=== PATIENT | female | born 1980 | race Caucasian/White ===

== ENCOUNTER 2021-08-22 14:24 | Outpatient (CLI) | payer OTHER, SELFPAY ==
--- NOTE | ~2021-08-22 | MM_ITS ---
EXAMINATION: MM screening janina BI w jen HISTORY: Screening TECHNIQUE: Craniocaudal and mediolateral oblique 3-D tomosynthesis images were obtained and synthetic 2-D images were generated. CAD analysis was submitted and interpreted. COMPARISON: 09/12/2015 BREAST PARENCHYMAL COMPOSITION: The breasts are heterogeneously dense, which may obscure small masses . FINDINGS: There is no evidence of suspicious mass, calcification, or architectural distortion to sugg est malignancy in either breast. There has been no suspicious interval change. IMPRESSION: 1. No mammographic evidence of malignancy. 2. Recommend routine screening mammography in one year. BI-RADS Category 1: Negative Reviewed, dictated and finalized at location A.
== END 2021-08-22 14:25 | disposition home or self-care (01) ==
LOC: ANHIMG 14:26
PROVIDERS: Visit Provider Obstetrics & Gynecology
DX: Z12.31 Encounter for screening mammogram for malignant neoplasm of breast (principal)
CPT/HCPCS: 77063; 77067

== ENCOUNTER 2022-08-24 14:51 | Outpatient (CLI) | payer OTHER, SELFPAY ==
--- NOTE | ~2022-08-24 | MM_ITS ---
EXAMINATION: MM screening janina BI w jen HISTORY: Screening mammogram TECHNIQUE: Craniocaudal and mediolateral oblique 3-D tomosynthesis images were obtained and synthetic 2-D images were generated. CAD analysis was submitted and interpreted. COMPARISON: 08/22/2021, 09/12/2015 bilateral mammogram examinations BREAST PARENCHYMAL COMPOSITION: The breasts are heterogeneously dense, which may obscure small masses . FINDINGS: There is no evidence of suspicious mass, calcification, or architectural distortion to sugg est malignancy in either breast. There has been no suspicious interval change. IMPRESSION: 1. No mammographic evidence of malignancy. 2. Recommend routine screening mammography in one year. BI-RADS Category 1: Negative Reviewed, dictated and finalized at location A.
== END 2022-08-24 14:52 | disposition home or self-care (01) ==
LOC: ANHIMG 14:54
PROVIDERS: PCP Nurse Practitioner Family; Visit Provider Obstetrics & Gynecology
DX: Z12.31 Encounter for screening mammogram for malignant neoplasm of breast (principal)
CPT/HCPCS: 77063; 77067

== ENCOUNTER 2023-05-03 08:10 | Outpatient (CLI) | payer OTHER, SELFPAY ==
[2023-05-03 12:53] LABS: Hematocrit 40.5 % (37.0-47.0); Hemoglobin 13.1 g/dL (12.0-15.0); Mean Corpuscular HGB Conc 32.3 g/dl (32-36); Mean Corpuscular Hemoglobin 29.3 pg (26-34); Mean Corpuscular Volume 90.6 fl (80-100); Platelet Count Result 187 k/mm3 (150-375); Red Blood Count 4.47 M/mm3 (4.2-5.4); Red Cell Distribution Width 12.4 % (11.5-14.5); White Blood Count 5.8 K/mm3 (4.5-10.0)
[2023-05-03 13:12] LABS: Alanine Aminotransferase 22 U/L (6-35); Albumin Level 4.2 g/dL (3.5-5.1); Alkaline Phosphatase 43 U/L (38-126); Anion Gap 3 mmol/L (8-16); Aspartate Amino Transferase 52 U/L (14-36); Bilirubin,Total 0.4 mg/dL (0.2-1.3); Blood Urea Nitrogen 19 mg/dL (7-17); Calcium 9.2 mg/dL (8.4-10.2); Carbon Dioxide 28 mmol/L (22-30); Chloride 105 mmol/L (98-107); Cholesterol 164 mg/dL (0-200); Estimated Glomerular Filt Rate > 60; Glucose 89 mg/dL (65-110); HDL Direct 63 mg/dL; Sodium 136 mmol/L (137-145); Triglycerides 36 mg/dL (<150)
[2023-05-03 13:23] LABS: LDL Cholesterol Direct 88 mg/dL
[2023-05-06 23:15] LABS: Vitamin D 1,25 (OH)2 Total 53 pg/mL (18-72); Vitamin D2 1,25 (OH)2 <8 pg/mL; Vitamin D3 1,25 (OH)2 53 pg/mL
== END 2023-05-03 08:11 | disposition home or self-care (01) ==
LOC: ANHGOSHLAB 08:11
PROVIDERS: PCP Family Medicine; Visit Provider Family Medicine
DX: E55.9 Vitamin D deficiency, unspecified (principal); Z68.24 Body mass index [BMI] 24.0-24.9, adult; Z79.899 Other long term (current) drug therapy; Z82.49 Family history of ischemic heart disease and other diseases of the circulatory system; Z83.42 Family history of familial hypercholesterolemia
CPT/HCPCS: 36415; 80053; 80061; 82652; 84443; 85027

== ENCOUNTER 2023-09-16 08:51 | Outpatient (CLI) | payer OTHER, SELFPAY ==
--- NOTE | ~2023-09-16 | MM_ITS ---
EXAMINATION: MM screening janina BI w jen HISTORY: Screening TECHNIQUE: Craniocaudal and mediolateral oblique 3-D tomosynthesis images were obtained and synthetic 2-D images were generated. CAD analysis was submitted and interpreted. COMPARISON: Comparison to multiple prior studies sequentially, with oldest reviewed study dated 09/11. BREAST PARENCHYMAL COMPOSITION: Not dense: There are scattered areas of fibroglandular density. FINDINGS: There is no evidence of suspicious mass, calcification, or architectural distortion to sugg est malignancy in either breast. There has been no suspicious interval change. IMPRESSION: 1. No mammographic evidence of malignancy. 2. Recommend routine screening mammography in one year. BI-RADS Category 1: Negative Reviewed, dictated and finalized at location B.
== END 2023-09-16 08:52 | disposition home or self-care (01) ==
LOC: ANHIMG 08:53
PROVIDERS: PCP Family Medicine; Visit Provider Obstetrics & Gynecology
DX: Z12.31 Encounter for screening mammogram for malignant neoplasm of breast (principal)
CPT/HCPCS: 77063; 77067

== ENCOUNTER 2024-07-26 10:32 | Outpatient (CLI) | payer OTHER, SELFPAY ==
--- OUTSIDE RECORDS SUMMARY | 2024-07-26 12:17 | XMS_ITS | Clinical Summary ---
Author Organization [facility] Address [address] Attn: Chuy Prelude ADT CHANDU SHANE [phone] Care Team Providers Care Hog Counter Name Role Phone Unavailable Primary Care Provider Unavailabl e Medications Clarinex 5 mg tablet TAKE ONE TABLET BY MOUTH ONCE DAILY 90 Tablet 3 11/16/2021 2:33 PM CDT 2 Active Clarinex 5 mg tablet TAKE ONE TABLET BY MOUTH ONCE DAILY 90 Tablet 3 2 Active desloratadine (CLARINEX) 5 mg tablet Take 1 Tablet (5 mg) by mouth 1 time daily as needed. 90 Tablet 1 10/07/2023 6:37 PM CDT 3 Active azithromycin (ZITHROMAX) 250 mg tablet TAKE 2 TABLETS BY MOUTH 1 DOSE TODAY, THEN TAKE 1 TABLET BY MOUTH ONCE DAILY FOR 4 DAYS. 6 Tablet 1 12/01/2022 11:00 AM CDT 3 Active omeprazole (PriLOSEC) 20 mg Capsule, Delayed Release(E.C.) Take 1 Capsule (20 mg) by mouth daily. 90 Capsule 01/10/2023 3:46 PM AIRCRAFT RIVETER 3 Active triamcinolone acetonide (KENALOG) 0.1 % Ointment Apply to itchy spots on the body (not face) twice daily. 80 Gram 5 05/08/2023 2:51 PM CDT 4 Active prednisoLONE acetate (Pred Forte) 1 % suspension ADMINISTER 1 DROP IN BOTH EYE(S) 4 TIMES DAILY FOR 7 DAYS. 5 mL 06/21/2023 7:12 PM CDT 4 Active methylPREDNISol one (Medrol, James,) 4 mg Tablets, Dose Pack TAKE DIRECTED ON PACKAGE. 21 Tablet 06/21/2023 7:12 PM CDT 4 Active tranexamic acid (LYSTEDA) 650 mg Tablet tablet Take 2 Tablets (1,300 mg) by mouth 3 times daily FOR DAYS 1-3 OF CYCLE. 30 Tablet 3 09/02/2023 6:38 PM CDT 4 Active desloratadine (CLARINEX) 5 mg tablet Take 1 Tablet (5 mg) by mouth daily. 90 Tablet 11/22/2023 5:59 PM CDT 4 Active Immunizations Immunization Administration Dates Next Due INFLUENZA VACCINE QUADRIVALENT 6 MOS UP PF IM Social History Tobacco Use Types Packs/Day Years Used Date Smoking Tobacco: Never Assessed Comments Unknown Sex and Gender Information Value Date Recorded Sex Assigned at Not on file Legal Sex Female 3:27 PM CDT Gender Identity Not on file Sexual Orientation Not on file Plan of Treatment Health Maintenance Due Date Last Done Comments DTAP/TDAP/TD VACCINES (1 - Tdap) 09/08/1999 HEPATITIS B VACCINES (1 of 3 - 19+ 3-dose series) 09/08/1999 HPV/Cotest (21-29) 2001 CERVICAL CANCER SCREENING 2010 HPV/Cotest (30-65) 2010 PAP SMEAR 2010 BREAST CANCER SCREENING 2020 INFLUENZA VACCINE (#1) 2023 01/20/2022 HPV VACCINES Aged Out No longer eligi ble based on patient's age to complete this topic Insurance [employer]
--- OUTSIDE RECORDS SUMMARY | 2024-07-26 12:17 | XMS_ITS | Clinical Summary ---
Author Organization [facility] Address [address] [place] [address] Care Team Providers Care Kiln Tender Name Role Phone Lanie Dominique DO Primary Care Provider [phone] Source Comments [facility],non-owned Affiliates and Associated Physician Practices is amultiple site organization consisting of ambulatory clinics and hospital sitesin [place], [place], [place] and [place]. This disclosure is being madepursuant to the Care Everywhere program and may not contain all information available regarding this patient. Last updated 17.[facility] Allergies Active Allergy Reactions Criticality Noted Date Comments Penicillins Rash Medium 10/28/2016 Sulfa Drugs Rash,Unknown Medium 02/17/2013 Medications * Be aware that medications may not be up to date on this document. Alwaysverify current medications with the patient. desloratadine (Clarinex) 5 MG tablet Take 1 (one) tablet by mouth once daily 11/10/2021 Active triamcinolone acetonide (Kenalog) 0.1 % ointmentIndicati ons:Other eczema Apply to itchy spots on body (not face) twice daily. 30 days supply. 80 g 5 05/05/2023 Active Active Problems Problem Noted Date Diagnosed Date Melanocytic nevi of lower extremity or hip 10/28 Melanocytic nevi of trunk 10/28/2016 Melanocytic nevi of unspecif ied upper limb, including shoulder 10/28/2016 Other specified epidermal thickening 10/28/2016 Keratosis pilaris 10/28/2016 Multiple benign melanocytic nevi of upper and lower extremities and trunk 10/28/2016 Female infertility 02/17/2013 Overview (11/10/2017): Overview: 02/16/13 - schedule hsg cd3 labs SA Other malignant neoplasm of skin of trunk, excep t scrotum 12/09/2004 Encounters Date Type Department Care Team Description 05/17/2024 9:30 AM CDT Office Visit [facility] - Dermatology [address] [place] [phone] Tanna Burkett MD Multiple benign melanocytic nevi of upper and lower extremities and trunk (Primary Dx); Lentigines; Seborrheic keratoses; Other eczema; Rash 05/17/2024 Travel from Last 3 Months Immunizations Immunization Administration Dates Next Due INFLUENZA VACCINE 12/24/2020,12/26/2019 TDAP (7yrs+) 05/16/2010 Family History Medical History Relation Name Comments None Known Brother None Known Father None Known Maternal Aunt None Known Maternal Grandfather None Known Maternal Grandmother None Known Maternal Uncle None Known Mother None Known Other None Known Paternal Aunt None Known Paternal Grandfather None Known Paternal Grandmother None Known Paternal Uncle None Known Sister Asthma Neg Hx CVA Neg Hx Cancer - Breast Neg Hx Cancer - Other Neg Hx Cancer - Skin, Melanoma Neg Hx Cancer - Skin, Non Melanoma Neg Hx Eczema Neg Hx Hemophilia Neg Hx Psoriasis Neg Hx Relation Name Status Comments Brother Father Maternal Aunt Maternal Grandfather Maternal Grandmother Maternal Uncle Mother Other Paternal Aunt Paternal Grandfather Paternal Grandmother Paternal Uncle Sister Social History Tobacco Use Types Packs/Day Years Used Date Smoking Tobacco: Never Smokeless Tobacco: Never Tobacco Cessation:Counseling Given: Not Answered Alcohol Use Standard Drinks/Week Comments Yes 0 (1 standard drink = 0.6 oz pur e alcohol) Comments Unknown Sex and Gender Information Value Date Recorded Sex Assigned at Not on file Legal Sex Female 5:28 PM CONSOLIDATOR Gender Identity Not on file Sexual Orientation Not on file Plan of Treatment Upcoming Encounters Date Type Department Care Team (Late st Contact Info) Description 05/23/2025 9:40 AM CDT Office Visit [facility] - Dermatology [address] [place] [phone] Tanna Burkett MD [address] [place] [phone] Health Maintenance Due Date Last Done Comments LIPID TESTING 1980 MAMMOGRAM 1980 PAP SMEAR 1980 HIV SCREENING 09/08/1995 HEPATITIS C SCREENING 09/03/1998 HEPATITIS B VACCINE (1 of 3 - 19+ 3-dose series) 09/08/1999 DTAP/TDAP/TD VACCINES (2 - T d or Tdap) 05/16/2020 05/16/2010 COVID-19 VACCINE (2023-2 5 season) 2023 DEPRESSION SCREENING 02/16/2024 INFLUENZA VACCINE (Season Ended) 2024 01/20/2022, 12/24/2020, 12/26/2019 ZOSTER VACCINE (1 of 2) 2030 HIB VACCINE Aged Out No longer eligi ble based on patient's age to complete this topic HPV VACCINE Aged Out No longer eligi ble based on patient's age to complete this topic MENINGOCOCCAL (Group B) VACCINE SHARED DECISION-MAKING Aged Out No longer eligible based on patient's age to complete this topic MENINGOCOCCAL GROUPS A/C/Y/W VACCINE Aged Out No longer eligible b ased on patient's age to complete this topic PNEUMOCOCCAL VACCINE Aged Out No long er eligible based on patient's age to complete this topic Insurance CIGNA CIGNA Care Teams Kiln Tender Relationship Specialty Start Date End Date Lanie Dominique DO [address] [place] [address] PCP - General Family Medicine 05/05/23
--- OUTSIDE RECORDS SUMMARY | 2024-07-26 12:17 | XMS_ITS | Data Portability ---
Author Organization [facility], Main Office Address [address] [place] [address] Assessment Encounter Date Assessment Date Assessment LastModified by Organization Details LastModified Time 05/13/2022 05/13/2022 WWE- SITE FOREMAN- Lionel Mammogram- 08/2021- ordered by SITE FOREMAN Cscope- age 45 Call office if worse, ER if life-threatening illness RTC in 1 year and p.r.n. She voices understanding of plan and agrees [place] [id number] Not available 05/13/2022 13:54:11 Plan of Treatment Reminders Order Date Submit Date Provider Last Modified By Organization Details Last Modified Time Details Appointments None record ed. Lab None record ed. Referral None record ed. Procedures None record ed. Surgeries None record ed. Imaging None record ed. Medication Orders None record ed. Patient TargetsNo targets recorded. Patient InstructionsNo instructions recorded. Reason for Referral None Reported. Results Created Date Observation Date Name Description Value Unit Range Abnormal Flag Note LastModifiedBy Organization Detail LastModifiedTime 08/25/1908/24/2022 MAMMO , scree [place], digit al, bilat eral No observ ation record ed. [email or web address] [facility] [address], [place], [address], 08/24/2022 20:33:53 Result Notes None recorded. Problems Name Problem SNOMED Code Status Onset Date Resolution Date Notes Provider Name and Address Organization Details Recorded Time Allergic rhinitis 21710482 Active 2022 LASHAWN Kee [address], [place], [phone] , [facility] 3 13:52:21 Weight gain 3125725 Active 2022 MARVEL KeeP-C [address], [address], [place], [address], [facility] 3 13:52:46 Fatigue 77706747 Active 2022 MARVEL KeeP-C [address], [address], [place], [address], [facility] 3 13:52:50 Insomnia 737011743 Active 2022 MARVEL KeeP-C [address], [address], [place], [address], [facility] 3 13:54:30 Vitamin D deficiency 56191598 Active 2022 MARVEL KeeP-C [address], [address], [place], [address], [facility] 3 13:21:01 Gastroesophage al reflux disease without esophagitis 516221880 Active 2022 Adali Marques null, [facility] 3 15:18:00 Problem Notes None recorded. Procedures Surgical History Date Name Laterality Status Provider Name and Address Organization Details Recorded Time delivery completed Yael Ace MA [facility] 05/13/2022 11:15:41 Imaging Results None recorded. Procedure Notes None recorded. Medical Equipment None Reported. Allergies Allergen ID Allergen Name Allergen Category Reaction Reaction Severity Criticality Documentation Date Start Date Code Code System Note Provider Name and Address Organization Details Recorded Time 08306 Substance with sulfonami de structure and antibacte rial mechanism of action (substanc e) medicatio n Not available Not available Not available 04/15/2022 13741 8003 SNOMED Not Available [facility] 3 16:28:47 65958 Product containin g penicilli n (product) medicatio n Not available Not available Not available 04/15/2022 46335 8001 SNOMED Not Available [facility] 3 16:28:47 Medications Name Sig Start Date Stop Date Status Note LastModified by Organization Details LastModified Time azithromyci n 250 mg tablet active Not Available Not Available Not Available omeprazole 20 mg capsule,del ayed release Take 1 capsule every day by oral route. active Not Available Not Available No t Available Clarinex 5 mg tablet TAKE ONE TABLET BY MOUTH ONCE DAILY active Not Available Not Available No t Available Afluria Qd 2019- (36 mos up)(PF)60 mcg (15 mcg x4)/0.5 mL IM syringe TO BE ADMINISTE RED BY PHARMACIS T FOR IMMUNIZAT ION 11/02 completed Not Available Not Available Not Available [facility] At-Home COVID-19 Test kit TEST DIRECTED TODAY 05/13 completed Not Available Not Available Not Available Vitals Date Recorded Body weight Body mass index (BMI) Body height Body temperature Heart rate Oxygen saturation Oxygen saturation in Arterial blood by Pulse oximetry Systolic blood pressure Diastolic blood pressure Provider Name and Address Organization Details Last Updated DateTime 3 40683.8 6 g 25 kg/m2 165.1 cm 97.6 [degF] 66 /min 98 % 98 % 124 mm[Hg] 76 mm[Hg] Yael Ace MA [facility] 11:17:14 Social History Question Answer Notes LastModified by Organizat [employer] Details LastModified Time Tobacco Smoking Status Never Smoker AMANDA Kelly [facility] 05/13/2022 11:13:45 What Is Your Level Of Caffeine Consumption? Moderate Information not available 05/13/2022 What Type Of Diet Are You Following? REGULAR Information not available 05/13/2022 What Is The Highest Grade Or Level Of School You Have Completed Or The Highest Degree You Have Received? [id number] Information not available 05/13/2022 Have There Been Any Changes To Your Family Or Social Situation? No Information not available 05/13/2022 What Is The Fluoride Status Of Your Home? Unknown Information not available 05/13/2022 Are There Any Guns Present In Your Home? No Information not available 05/13/2022 Do You Use Insect Repellent Routinely? Yes Information not available 05/13/2022 Where Do You Live? [place] Information not available 05/13/2022 What Was The Date Of Your Most Recent Tobacco Screening? 05/13/2022 Information not available 05/13/2022 Do You Have Any Pets? Yes Information not available 05/13/2022 What Is Your Relationship Status? Information not available 05/13/2022 Do You Use Your Seat Belt Or Car Seat Routinely? Yes Information not available 05/13/2022 Do You Have Smoke And Carbon Monoxide Detectors In Your Home? Yes Information not available 05/13/2022 Are You Passively Exposed To Smoke? No Information not available 05/13/2022 Are There Any Smokers In Your House? No Information not available 05/13/2022 Do You Use Sunscreen Routinely? Yes Information not available 05/13/2022 Do You Have Any Dietary Restrictions? No Information not available 05/13/2022 Sex: Unknown Functional Status Question Answer Note LastModified by Organizat ion Details LastModified Time Do you use any illicit or recreational drugs? No Information not available 05/13/2022 Do you or have you ever used any other forms of tobacco or nicotine? No Information not available 05/13/2022 What is your level of alcohol consumption? Occasional Information not available 05/13/2022 Are you currently employed? 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 Moderate Information not available 05/13/2022 Mental Status Question Answer Note LastModified by Organization D etails LastModified Time Do you feel stressed (tense, restless, nervous, or anxious, or unable to sleep at night)? [id number] Information not available 05/13/2022 Family History Relationship Description Onset Age of this Age Resolved Age Notes LastModified by Organization Details LastModified Time Maternal Grandmother Alzheimer's disease Not available 2022 11:11:38 Maternal Uncle Alzheimer's disease Not available 2022 11:11:38 Medical History Condition Response ALLERGIES/HAYFEVER Y Gynecological HistoryNo gynecological history recorded. Obstetrics History GPAL:G 0 P 0 0 0 0 Immunizations Vaccine Type Date Status Note Provider Keshawn doyle and Address Organization Details Recorded Time SARS-COV-2 (COVID-19) vaccine, UNSPECIFIED 04/18/2020 completed AMANDA Kelly, [facility] 05/13/2022 11:10:17 SARS-COV-2 (COVID-19) vaccine, UNSPECIFIED 05/11/2020 completed AMANDA Kelly, [facility] 05/13/2022 11:10:28 SARS-COV-2 (COVID-19) vaccine, UNSPECIFIED 02/13/2021 completed AMANDA Kelly, [facility] 05/13/2022 11:10:42 Past Encounters Encounter ID Performer Location Encounter Start Date Encounter Closed Date Diagnosis/Indication Diagnosis SNOMED-CT Code Diagnosis ICD10 Code Diagnosis Note [id number] Lesley padilla MD [facility] Billy mcdonnell [address] [place] [address] 05/13/2022 11:00:18 05/13/2022 12:12:35 Allergic rhinitis 78859568 J30.9 on Clarinex prnshe will call when she needs script, she doesn't need one now Insomnia 247309932 G47.0 0 She is not interested in prescripti on meds- her client resource specialist wrote her one but she did not take it We had a long discussion about lifestyle changes she could tryAvoid falling asleep in daughter's room, stay up until she is ready to go to bedAvoid screens 1 hour prior to bedtimeAim to get 7 hours sleep per nightCan try melatoninR ecommend getting back into her morning workouts to try to help regulate schedule Weight gain 2594198 R63. 5 get recent labs from SITE FOREMAN- she will sign today for records long discussion about lifestyle measures-r ecommend she track her nutrition to be sure she is getting enough protein dailyencou raged her to get back into her fitness routine recommend healthy, well balanced mealsfocus on lean meats, fresh vegetables , fresh fruits, whole grainsredu ce fast/proce ssed foods or eating out to no more than 1-2 times per weekaim to get 30 min of exercise most days of the week- walking is a great choicealso recommend resistance training 2-3 times per week over 45 min spent with patient and over half spent on counseling Fatigue 38242546 R53.83 get recent labs from SITE FOREMAN Health Concerns Section Related Observation LastModified by Organization Detai ls LastModified Time None Recorded Concern Status LastModified by Organization Details LastModified Time None Recorded Advance Directives Directive None Recorded Payers Encounter Date Sequence Insurance Name Policy Number Policy Wasserman Covered Member ID Wasserman Member ID Guarantor Name 05/13/2022 1 [employer] [id number] Tasha Azul [id number] Tasha Azul Notes Date Note Type Note Provider Name and Address Organization Details Recorded Time 05/13/2022 text/html Tasha presents today to establish care. Previous PCP- Dr. Parminder Fitzpatrick but not for several yearsReviewed PMFSH. , has 2 kids- 8yo daughter and middle school aged son, works as exec director at [employer] Past hx:allergiesskin lesions- follows derm annually She reports she takes Clarinex for her allergies. She uses that typically in the fall. She is not currently taking it at this time. It does work well for her and she has been on that for many years. She also reports she has history of multiple skin lesions, she does follow derm annually for her skin checks. Today her main concern is insomnia. She had previously talked with her client resource specialist about this and he prescribed her sleeping pills, however she was not comfortable with taking medication and so she did not take them. She also tells me he did recent labs but she is not sure what he ran.She reports often times she puts her 8-year-old daughter to bed and then falls asleep in her room for few hours. She then wakes up and tries to go to bed. She can fall asleep but then she wakes up about 3:00 a.m.. She does feel tired all the time. He denies any anxiety or ruminating thoughts. She does report she put some stress on herself with her job if she wants to do it well. She reports it is a low stress job though as all of the stress she puts on herself. She reports she used to get up and work out in the mornings but she has not been doing that. She reports she did take NyQuil once and that did help her sleep when she was sick. She has not tried anything else [id number]. She denies any snoring or sleep apnea. She also reports she has had about a 10 lb weight gain in the past year. Ayleen Puente, DIRECTOR OF GUIDANCE-C [address], [place], [address], [facility] 05/13/2022 13:59:56 OBGyn Episode No OBEpisode recorded.
--- OUTSIDE RECORDS SUMMARY | 2024-07-26 12:17 | XMS_ITS | Referral Summary ---
Author Organization [address] Address [address] [place] [id number] Care Team Providers Care Toll Test Worker Name Role Phone Jodee Jarrell MD Primary Care Provider [phone]- [phone] Allergies Active Allergy Reactions Criticality Noted Date Comments Penicillin Unknown Cerner Allergy Text Annotation: penicillin Penicillins Rash Medium 02/17/2013 Sulfa (Sulfonamide Antibiotics) Rash Medium 02/17/2013 Sulfamethoxazole Unknown Cerner Allergy Text Annotation: sulfamethoxazole Sulfasalazine Rash Medium 10/28/2016 Challenge Pollen Unknown 02/17/2013 Medications desloratadine (CLARINEX) 5 mg tablet 10/23/2017 Active prenat.vits,mark, [id number] tablet One tablet a day 02/17/2013 Active pyridoxine (VITAMIN B-6) 25 mg tablet One tablet a day dose? 02/17/2013 Active Active Problems Problem Noted Date Diagnosed Date Keratosis pilaris 10/28/2016 Melanocytic nevi of lower extremity or hip 10/28 Melanocytic nevi of trunk 10/28/2016 Melanocytic nevi of unspecif ied upper limb, including shoulder 10/28/2016 Multiple benign melanocytic nevi of upper and lower extremities and trunk 10/28/2016 Other specified epidermal thickening 10/28/2016 Female infertility 02/17/2013 Overview (11/17/2017): Overview: Overview: 02/16/13 - schedule hsg cd3 labs SA Overview: 02/16/13 - schedule hsg cd3 labs SA Primary malignant neoplasm of skin of trunk 11/16 Social History Tobacco Use Types Packs/Day Years Used Date Smoking Tobacco: Never Smokeless Tobacco: Never Alcohol Use Standard Drinks/Week Comments No 0 (1 standard drink = 0.6 oz pur e alcohol) Personal Safety Answer Date Recorded Getting School Help Needed Not on file 04/16 Comments Unknown Sex and Gender Information Value Date Recorded Sex Assigned at Not on file Legal Sex Female 2:17 PM CDT Gender Identity Female 09/04/2021 2:58 PM CDT Sexual Orientation Not on file Last Filed Vital Signs Vital Sign Reading Time Taken Comments Blood Pressure 104/71 09/04/2021 3:48 PM CDT Pulse 69 09/04/2021 3:48 PM CDT Temperature 37.2 C (98.9 F) 09/04/2021 3:48 PM CDT Respiratory Rate 14 09/04/2021 3:48 PM CDT Oxygen Saturation 96% 09/04/2021 3:48 PM CDT Inhaled Oxygen Concentration - - Weight 65.8 kg (145 lb) 09/04/2021 3:48 PM CDT Height 165.1 cm (5' 5) 09/04/2021 3:48 PM CDT Body Mass Index 24.13 09/04/2021 3:48 PM CDT Plan of Treatment Not on file Insurance [facility] PPO Care Teams Toll Test Worker Relationship Specialty Start Date End Date Jodee Jarrell MD [address] [place] [id number] PCP - General Family Medicine 09/04/21
--- OUTSIDE RECORDS SUMMARY | 2024-07-26 12:17 | XMS_ITS | Clinical Summary ---
Author Organization [address] Address [address] [place] [id number] Care Team Providers Care Supervisor Dials Name Role Phone Jodee Jarrell MD Primary Care Provider [phone]- [phone] Allergies Active Allergy Reactions Criticality Noted Date Comments Penicillin Unknown Cerner Allergy Text Annotation: penicillin Penicillins Rash Medium 02/17/2013 Sulfa (Sulfonamide Antibiotics) Rash Medium 02/17/2013 Sulfamethoxazole Unknown Cerner Allergy Text Annotation: sulfamethoxazole Sulfasalazine Rash Medium 10/28/2016 [place] Pollen Unknown 02/17/2013 Medications desloratadine (CLARINEX) 5 mg tablet 10/23/2017 Active prenat.vits,mark, [id number] tablet One tablet a day 02/17/2013 Active [...] malignant neoplasm of skin of trunk 11/16 Surgical History Surgery Date Site/Laterality Comments SECTION 05/15/10 11/01/13 Family History Medical History Relation Name Comments Heart disease Neg Hx Social History Tobacco Use Types Packs/Day Years [...] PM CDT Sexual Orientation Not on file Obstetrics History Last Filed Vital Signs Vital Sign Reading [...] 09/04/2021 3:48 PM CDT Plan of Treatment Health Maintenance Due Date Last Done Comments Breast Cancer Screening-Mammogram 1980 Cervical Cancer Screening 1980 Depression Screening 1980 Hepatitis C Screening 1980 Varicella Vaccines (1 of 2 - 13+ 2-dose series) 1993 Hepatitis B Screening 1998 Regular Well Visit/Exam 18-64 1998 DTaP/Tdap/Td Vaccine (2 - Td or Tdap) 05/16/2020 05/16/2010 Influenza Vaccine (Season Ended) 2024 12/24/2020, 12/26/2019 HPV Vaccines Aged Out No longer eligi ble based on patient's age to complete this topic Pneumococcal vaccine <65 Aged Out No longer eligible based on patient's age to complete this topic Insurance [facility] Care Teams Supervisor Dials Relationship Specialty Start Date End Date Jodee Jarrell MD [employer] [place] [address] PCP - General Family Medicine 09/04/21
[2024-07-26 12:28] LABS: Hematocrit 41.5 % (37.0-47.0); Hemoglobin 13.5 g/dL (12.0-15.0); Mean Corpuscular HGB Conc 32.5 g/dl (32-36); Mean Corpuscular Hemoglobin 29.1 pg (26-34); Mean Corpuscular Volume 89.4 fl (80-100); Mean Platelet Volume 9.5 fl (7.4-10.4); Platelet Count Result 244 k/mm3 (150-375); Red Blood Count 4.64 M/mm3 (4.2-5.4); Red Cell Distribution Width 11.9 % (11.5-14.5); White Blood Count 4.5 K/mm3 (4.5-10.0)
[2024-07-26 12:50] LABS: Alanine Aminotransferase 19 U/L (6-35); Albumin Level 4.4 g/dL (3.5-5.1); Alkaline Phosphatase 36 U/L (38-126); Anion Gap 7 mmol/L (4-12); Aspartate Amino Transferase 32 U/L (14-36); Bilirubin,Total 0.8 mg/dL (0.2-1.3); Blood Urea Nitrogen 16 mg/dL (7-17); Calcium 9.3 mg/dL (8.4-10.2); Carbon Dioxide 25 mmol/L (22-30); Chloride 104 mmol/L (98-107); Estimated Glomerular Filt Rate > 60; Glucose 83 mg/dL (65-110); Potassium 4.3 mmol/L (3.4-5.0); Sodium 136 mmol/L (137-145); Total Protein 7.3 g/dL (6.3-8.2)
[2024-07-26 13:24] LABS: Thyroid Stimulating Hormone 0.991 uIU/mL (0.465-4.680)
== END 2024-07-26 10:33 | disposition home or self-care (01) ==
LOC: ANHGOSHLAB 10:32
PROVIDERS: PCP Family Medicine; Visit Provider Family Medicine
DX: R74.8 Abnormal levels of other serum enzymes (principal); Z79.899 Other long term (current) drug therapy
CPT/HCPCS: 36415; 80053; 84443; 85027

== ENCOUNTER 2024-10-06 15:20 | Outpatient (CLI) | payer OTHER, SELFPAY ==
--- NOTE | ~2024-10-06 | MM_ITS ---
EXAMINATION: MM screening janina BI w jen HISTORY: Screening TECHNIQUE: Craniocaudal and mediolateral oblique 3-D tomosynthesis images were obtained and synthetic 2-D images were generated. CAD analysis was submitted and interpreted. COMPARISON: Comparison to multiple prior studies sequentially, with oldest reviewed study dated 09/12/2015. BREAST PARENCHYMAL COMPOSITION: Dense: The breasts are heterogeneously dense, which may obscure small masses FINDINGS: There is no evidence of suspicious mass, calcification, or architectural distortion to suggest malignancy in either breast. There has been no suspicious interval change. IMPRESSION: 1. No mammographic evidence of malignancy. 2. Recommend routine screening mammography in one year. BI-RADS Category 1: Negative Reviewed, dictated and finalized at location O.
--- OUTSIDE RECORDS SUMMARY | 2024-10-06 15:25 | XMS_ITS | Patient Health Record ---
Author Organization [facility] As mascotsecret Address [address] [facility] [address] [place] [address] Care Team Providers Care Agriculture Engineer Name Role Phone Rossy Esparza Unavailable [phone] Reason For Referral No Information Medications Medication SIG (Take, Route, Frequency, Duration) Notes Start Date End Date Status Desloratadine 5 MG Tablet Oral Active Omeprazole 20 MG Capsule Delayed Release Oral Active Azithromycin 250 MG Tablet Oral Active Social History Social History Additional Details Category Social Info Options Details Migrated Social History Migrated Social History Tobacco Years: Never smoker 12/29/2022 Plan Of Treatment No Information Insurance Providers Payer Name Payer Address Payer Phone Subscriber Number Group Number Insured Name Patient Relationship to Insured Coverage Start Date Coverage End Date Cigna [address] [place] [phone] [id number] CARRIE TRIVEDI Self - patient is the insured
--- OUTSIDE RECORDS SUMMARY | 2024-10-06 15:25 | XMS_ITS | Clinical Summary ---
Author Organization [address] Address [address] [place] [address] Care Team Providers Care Rn Gynecology Name Role Phone Jodee Jarrell MD Primary Care Provider [phone]- [phone] Allergies Active Allergy Reactions Criticality Noted Date Comments Penicillin Unknown Cerner Allergy Text Annotation: penicillin Penicillins Rash Medium 02/17/2013 Sulfa (Sulfonamide Antibiotics) Rash Medium 02/17/2013 Sulfamethoxazole Unknown Cerner Allergy Text Annotation: sulfamethoxazole Sulfasalazine Rash Medium 10/28/2016 [place] Pollen Unknown 02/17/2013 Medications desloratadine (CLARINEX) 5 mg tablet 10/23/2017 Active prenat.vits,mark, [id number]-[id number] tablet One tablet a day 02/17/2013 Active [...] Plan of Treatment Not on file [facility] Care Teams Rn Gynecology Relationship Specialty Start Date End Date Jodee Jarrell MD [facility] [place] [address] PCP - General Family Medicine 09/04/21
--- OUTSIDE RECORDS SUMMARY | 2024-10-06 15:25 | XMS_ITS | Clinical Summary ---
Author Organization [facility] Back& Address [address] [facility] [place] [address] Care Team Providers Care Senior Solutions Workflow Consultant Name Role Phone Lanie Dominique DO Primary Care Provider [phone] Source Comments [facility],non-owned Affiliates and Associated Physician Practices is amultiple site organization consisting of ambulatory clinics and hospital sitesin [place], [place], [place] and [place]. This disclosure is being madepursuant to the Care Everywhere program and may not contain all information available regarding this patient. 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 Gender Identity Not on file Sexual Orientation Not on file Plan of Treatment Upcoming Encounters Date Type Department Care Team (Late st Contact Info) Description 05/23/2025 9:40 AM CDT Office Visit [facility] - Dermatology [address] [place] [address], [place] [id number] Tanna Burkett MD [address] [place] [address] [address] [place] [id number] Health Maintenance Due Date Last Done Comments LIPID TESTING 1980 MAMMOGRAM 1980 HIV SCREENING 09/08/1995 HEPATITIS C SCREENING 09/03/1998 HEPATITIS B VACCINE (1 of 3 - 19+ 3-dose series) 09/08/1999 PAP SMEAR 2001 HPV VACCINE (1 - 3-dose SCDM series) 09/08/2007 DTAP/TDAP/TD VACCINES (2 - T d or Tdap) 05/16/2020 05/16/2010 COVID-19 VACCINE (1 - 2023-2 5 season) 2023 DEPRESSION SCREENING 02/16/2024 INFLUENZA VACCINE (#1) 2024 2, 12/24/2020, 12/26/2019 ZOSTER VACCINE (1 of 2) [...] patient's age to complete this topic Insurance Rundown [employer] Care Teams Senior Solutions Workflow Consultant Relationship Specialty Start Date End Date Lanie Dominique DO [address] [place] [address] PCP - General Family Medicine 05/05/23
--- OUTSIDE RECORDS SUMMARY | 2024-10-06 15:25 | XMS_ITS | Clinical Summary ---
[facility] Address [address] [facility] Attn: Chuy Prelude ADT CHANDU SHANE [address] Care Team Providers Care Section Repairer Name Role Phone Unavailable Primary Care Provider [...] mouth daily. 90 Capsule 01/10/2023 3:46 PM DESIGN ASSISTANT 3 Active triamcinolone acetonide (KENALOG) 0.1 % [...] Tablet 11/22/2023 5:59 PM CDT 4 Active Encounters Date Type Department Care Team Description 08/30/2024 External Device Data [facility] ABSTRACTION Provider, Abstract from Last 3 Months Immunizations Immunization Administration [...] Health Maintenance Due Date Last Done Comments HPV VACCINES (1 - 3-dose series) 09/08/1995 DTAP/TDAP/TD VACCINES (1 - Tdap) 09/08/1999 HEPATITIS B VACCINES (1 of 3 - 19+ 3-dose series) 08/16 HPV/Cotest (21-29) 2001 CERVICAL CANCER SCREENING 2010 HPV/Cotest (30-65) 2010 PAP SMEAR 2010 BREAST CANCER SCREENING 2020 INFLUENZA VACCINE (#1) 2024 01/20/2022 Insurance [employer]
== END 2024-10-06 15:21 | disposition home or self-care (01) ==
LOC: ANHFOHIMG 15:22
PROVIDERS: PCP Family Medicine; Visit Provider Obstetrics & Gynecology
DX: Z12.31 Encounter for screening mammogram for malignant neoplasm of breast (principal)
CPT/HCPCS: 77063; 77067